=== PATIENT | male | born 1985 | race Caucasian/White ===

== ENCOUNTER 2016-09-27 06:16 | Emergency (ER) | payer OTHER ==
[2016-09-27 06:38] VITALS: BP 120/71; PULSE 78; TEMP 98.4; BMI 29.2
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
--- NOTE | 2016-09-27 07:59 | PDOC ---
*Physical Exam - Vital Signs Last Vital Signs Temp Pulse Resp BP Pulse Ox 98.4 F 78 18 120/71 100 09/27/16 06:35 09/27/16 06:35 09/27/16 06:35 09/27/16 06:35 09/27/16 06:35 Medical Decision Making - Medical Decision Making 09/27/16 07:55 Patient received in sign out from DIANELYS Hopson. Patient awaiting head CT secondary to complaints of nausea, dizziness approximate one week after head injury. 09/27/16 09:[address] shows no signs of acute intracranial hemorrhage, edema or midline shift , mass effect, skull fracture. Cervical CT shows no evidence of compression deformities, subluxation, acute fracture, or prevertebral soft tissue swelling. Patient be discharged home with postconcussive syndrome instructions. *DC/Admit/Observation/Transfer Diagnosis at time of Disposition: Postconcussion syndrome - Discharge Dispostion Disposition: HOME Condition at time of disposition: Good - Referrals Referrals: Nuha Villegas MD [Primary Care Provider] - - Patient Instructions Printed Discharge Instructions: DI for Postconcussion Syndrome Additional Instructions: Please follow instructions on postconcussive syndrome as it recommends no straining of the eyes by reading small fine print, watching TV longer than 15 minutes, or reading from your phone or texting frequently.
== END 2016-09-27 09:40 | disposition home or self-care (01) ==
LOC: JER 06:16
DX: F07.81 Postconcussional syndrome (principal); G44.319 Acute post-traumatic headache, not intractable; V11.4XXA Pedal cycle driver injured in collision with other pedal cycle in traffic accident, initial encounter; Y92.414 Local residential or business street as the place of occurrence of the external cause; Y93.55 Activity, bike riding; Y99.8 Other external cause status
CPT/HCPCS: 70450-TC; 72125-TC; 99281-25